=== PATIENT | female | born 2000 | race Asian ===

== ENCOUNTER 2022-01-04 22:53 | Emergency (ER) | payer OTHER ==
[2022-01-04] MEDS ORDERED: Ibuprofen 200 MG TAB ONE (23:25)
== END 2022-01-05 00:33 | disposition home or self-care (01) ==
LOC: ERS 22:53
DX: S60.221A Contusion of right hand, initial encounter (principal); W23.0XXA Caught, crushed, jammed, or pinched between moving objects, initial encounter